=== PATIENT | male | born 1965 | race Caucasian/White ===

== ENCOUNTER 2016-07-23 20:44 | Day surgery (SDC) | payer BC, OTHER ==
[2016-07-23 20:45] VITALS: BP 180/84; PULSE 104; RESP 20; TEMP 98; O2SAT 96
[2016-07-23] MEDS ORDERED: GLUCAGON 1 MG/ML VIAL IV PUSH ONE (21:15)
[2016-07-23 21:46] LABS: AUTOMATED NEUTROPHIL # 4.4 TH/MM3 (1.8-7.7); BASOPHIL # 0.1 TH/MM3 (0-0.2); BASOPHIL % 0.9 % (0.0-2.0); EOSINOPHIL # 0.4 TH/MM3 (0-0.4); EOSINOPHIL % 4.5 % (0.0-4.0); HEMATOCRIT 44.2 % (39.0-51.0); HEMO FLAGS DIFF FINAL; LYMPH % 32.7 % (9.0-44.0); LYMPHOCYTE # 2.7 TH/MM3 (1.0-4.8); MEAN CELL VOLUME 87.3 FL (80.0-100.0); MEAN CORPUSCULAR HEMOGLOBIN 29.8 PG (27.0-34.0); MEAN CORPUSCULAR HGB CONC 34.2 % (32.0-36.0); MONO % 8.5 % (0.0-8.0); NEUT % 53.4 % (16.0-70.0); PLATELET COUNT 270 TH/MM3 (150-450); RED BLOOD COUNT 5.07 MIL/MM3 (4.50-5.90); RED CELL DISTRIBUTION WIDTH 13.1 % (11.6-17.2); WHITE BLOOD COUNT 8.2 TH/MM3 (4.0-11.0)
--- NOTE | 2016-07-23 22:03 | PD ---
HPI Chief Complaint: Foreign Body Time Seen by Provider: 21:00 Travel History International Travel<30 days: No Contact w/Intl Traveler<30days: No Traveled to known affect area: No History of Present Illness HPI Patient is a 51 year old male who comes in after choking on a piece of steak. He says he initially coughed up a large amount of food, but he has not been able to drink water or swallow his spit since then. He says he feels like something is stuck deep in his chest. He says he was in his normal state of health just prior to the event. He denies any other complaints at this time. PFSH Past Surgical History Appendectomy: Yes Social History Alcohol Use: Yes (socially) Tobacco Use: No Substance Use: No Allergies-Medications (Allergen,Severity, Reaction): Coded Allergies: No Known Allergies (Unverified , 07/23/16) Reported Meds & Prescriptions Reported Meds & Active Scripts Active No Active Prescriptions or Reported Medications Review of Systems Except as stated in HPI: all other systems reviewed are Neg General / Constitutional: No: Fever, Chills HENT: No: Headaches, Lightheadedness Cardiovascular: No: Chest Pain or Discomfort Respiratory: No: Shortness of Breath Gastrointestinal: Positive: Nausea, Vomiting Musculoskeletal: No: Edema, Pain Skin: No Rash, No Change in Pigmentation Neurologic: No: Weakness, Dizziness Physical Exam Narrative GENERAL: Awake and alert, not drooling. SKIN: Warm and dry. HEAD: Atraumatic. Normocephalic. EYES: Pupils equal and round. No scleral icterus. ENT: Mucous membranes pink and moist. NECK: Trachea midline. No JVD. CARDIOVASCULAR: Regular rate and rhythm. No murmur appreciated. RESPIRATORY: No accessory muscle use. Clear to auscultation. Breath sounds equal bilaterally. GASTROINTESTINAL: Abdomen soft, non-tender, nondistended. MUSCULOSKELETAL: No obvious deformities. No clubbing. No cyanosis. No edema. NEUROLOGICAL: Awake and alert. No obvious cranial nerve deficits. Motor grossly within normal limits. Normal speech. PSYCHIATRIC: Appropriate mood and affect; insight and judgment normal. Data Data Last Documented VS Vital Signs Date Time Temp Pulse Resp B/P Pulse Ox O2 Delivery O2 Flow Rate FiO2 07/23/16 21:21 18 07/23/16 20:45 98.0 104 180/84 96 Orders Complete Blood Count With Diff (3/17/17 21:09) Basic Metabolic Panel (Bmp) (07/23/16 21:09) Glucagon Inj (Glucagon Inj) (07/23/16 21:15) Admit Order (Ed Use Only) (07/23/16 ) Labs Laboratory Tests Test 07/23/16 21:10 White Blood Count 8.2 TH/MM3 Red Blood Count 5.07 MIL/MM3 Hemoglobin 15.1 GM/DL Hematocrit 44.2 % Mean Corpuscular Volume 87.3 FL Mean Corpuscular Hemoglobin 29.8 PG Mean Corpuscular Hemoglobin 34.2 % Concent Red Cell Distribution Width 13.1 % Platelet Count 270 TH/MM3 Mean Platelet Volume 8.0 FL Neutrophils (%) (Auto) 53.4 % Lymphocytes (%) (Auto) 32.7 % Monocytes (%) (Auto) 8.5 % Eosinophils (%) (Auto) 4.5 % Basophils (%) (Auto) 0.9 % Neutrophils # (Auto) 4.4 TH/MM3 Lymphocytes # (Auto) 2.7 TH/MM3 Monocytes # (Auto) 0.7 TH/MM3 Eosinophils # (Auto) 0.4 TH/MM3 Basophils # (Auto) 0.1 TH/MM3 CBC Comment DIFF FINAL Differential Comment Sodium Level 140 MEQ/L Potassium Level 3.7 MEQ/L Chloride Level 102 MEQ/L Carbon Dioxide Level 31.4 MEQ/L Anion Gap 7 MEQ/L Blood Urea Nitrogen 16 MG/DL Creatinine 1.17 MG/DL Estimat Glomerular Filtration 65 ML/MIN Rate Random Glucose 153 MG/DL Calcium Level 8.8 MG/DL [facility] Medical Decision Making Medical Screen Exam Complete: Yes Emergency Medical Condition: Yes Differential Diagnosis esophageal foreign body vs gastritis vs GERD Narrative Course Patient is a 51 year old male who comes in after choking on steak tonight at dinner. He is not even able to swallow his own saliva without it coming back up. IV established, labs sent. Labs show no acute abnormalities. Patient given Glucagon without relief of his symptoms. Dr. Bowen of GI consulted for EGD to remove food bolus. Diagnosis Primary Impression: Esophageal foreign body Qualified Code: T18.108A - Esophageal foreign body, initial encounter Admitting Information Admitting Physician Requests: Observation Scripts No Active Prescriptions or Reported Meds Condition: April Farley MD Jul 23, 2016 22:03
[2016-07-23 22:09] LABS: BICARBONATE 31.4 MEQ/L (21.0-32.0); POTASSIUM 3.7 MEQ/L (3.5-5.1)
[2016-07-23 22:49] VITALS: BP 140/86; PULSE 93; RESP 18; O2SAT 98
[2016-07-23] MEDS ORDERED: PROPOFOL 200 MG/20 ML AMP IV ONE (23:26)
--- NOTE | 2016-07-23 23:49 | PD.CONS ---
HPI History of Present Illness This is a 51 year old male who presents to the emergency department with complaints of inability to swallow he was eating a piece of steak a little earlier and he got stuck he brought up a good amount of food but he is unable to swallow his saliva this is never happened to him before he denies any prior history of dysphagia and denies any prior history of heartburn or reflux denies any change in appetite he has been dieting to lose weight and has lost about 50 pounds in the past several months through diet and exercise he denies any family history he quit smoking 20 or 30 years ago and is in good health overall [facility] Past Medical History None Past Surgical History Appendectomy Coded Allergies: No Known Allergies (Unverified , 07/23/16) Medications Current Medications Glucagon (Glucagon Inj) 1 mg ONCE ONCE IV PUSH Last administered on 07/23/16t 21:15; Start 07/23/16 at 21:15; Stop 07/23/16 at 21:16; Status DC Family History Noncontributory Social History Patient drinks socially and quit smoking 20 or 30 years ago Review of Systems ROS Review of systems Patient denies any headache dizziness blurry vision, denies any chest pain shortness of breath cough fever chills, Denies any palpitations or fatigue denies any polyuria dysuria hematuria, denies any numbness tingling or weakness, denies any skin rash pruritus or jaundice, denies any easy bruising or bleeding tendency, denies any recent change in mood GI Exam Vitals I&O Vital Signs Date Time Temp Pulse Resp B/P Pulse Ox O2 Delivery O2 Flow Rate FiO2 07/23/16 22:49 93 18 140/86 98 07/23/16 21:21 18 07/23/16 20:45 98.0 104 20 180/84 96 Laboratory Test 07/23/16 21:10 White Blood Count 8.2 TH/MM3 Red Blood Count 5.07 MIL/MM3 Hemoglobin 15.1 GM/DL Hematocrit 44.2 % Mean Corpuscular Volume 87.3 FL Mean Corpuscular Hemoglobin 29.8 PG Mean Corpuscular Hemoglobin 34.2 % Concent Red Cell Distribution Width 13.1 % Platelet Count 270 TH/MM3 Mean Platelet Volume 8.0 FL Neutrophils (%) (Auto) 53.4 % Lymphocytes (%) (Auto) 32.7 % Monocytes (%) (Auto) 8.5 % Eosinophils (%) (Auto) 4.5 % Basophils (%) (Auto) 0.9 % Neutrophils # (Auto) 4.4 TH/MM3 Lymphocytes # (Auto) 2.7 TH/MM3 Monocytes # (Auto) 0.7 TH/MM3 Eosinophils # (Auto) 0.4 TH/MM3 Basophils # (Auto) 0.1 TH/MM3 CBC Comment DIFF FINAL Differential Comment Sodium Level 140 MEQ/L Potassium Level 3.7 MEQ/L Chloride Level 102 MEQ/L Carbon Dioxide Level 31.4 MEQ/L Anion Gap 7 MEQ/L Blood Urea Nitrogen 16 MG/DL Creatinine 1.17 MG/DL Estimat Glomerular Filtration 65 ML/MIN Rate Random Glucose 153 MG/DL Calcium Level 8.8 MG/DL Physical Examination HEENT: Pupils round and reactive to light; normocephalic; atraumatic; no jaundice. Throat is clear. NECK: Neck is supple, no JVD, no lymphadenopathy. CHEST: Chest is clear to auscultation and percussion. CARDIAC: Regular rate and rhythm with no murmur gallop or rubs. ABDOMEN: Obese Soft, nondistended, nontender; no hepatosplenomegaly; bowel sounds are present in all four quadrants. EXTREMITIES: No clubbing, cyanosis, or edema. SKIN: Normal; no rash; no jaundice. POWER TECHNICIAN: No focal deficits; alert and oriented times three. Assessment and Plan Plan Patient with a food bolus impaction We will proceed with an EGD under general anesthesia Further recommendations shall depend on the findings Theron Bowen MD Jul 23, 2016 23:49
--- NOTE | 2016-07-23 23:55 | PD.PROCEDR ---
GI Procedure REFERRING PHYSICIAN ER physician PROCEDURE PERFORMED EGD with food bolus disimpaction INDICATION FOR PROCEDURE Food bolus impaction PROCEDURE: The procedure, risks and benefits were discussed with Mr. Munoz and informed consent was obtained. Patient underwent general anesthesia with intubation to protect his airway. He was placed in the left lateral decubitus position. EGD: The Pentax videoscope was introduced through the oropharynx and advanced to the second portion of the duodenum under direct visualization. Retroflexion was performed in the stomach. FINDINGS: Esophagus this appeared to be unremarkable all the way down to the GE junction where a piece of meat was noted to be impacted this was removed using a tripod after complete removal was felt like the LES was somewhat tight and I couldn't see any inflammation there were no ulcerations no tumor could be found there was a great deal of reflux occurring from the stomach and the evaluation is incomplete The stomach this was filled with food and the evaluation was incomplete but for the most part the mucosa that was seen was unremarkable no bleeding was seen The duodenum was unremarkable but again it was incompletely evaluated due to food ESTIMATED BLOOD LOSS: None SPECIMENS REMOVED: None COMPLICATIONS: None IMPRESSION: Food bolus impaction Incomplete EGD Possibly tight LES PLAN: The findings were discussed with the patient's Patient ought to have a repeat EGD and possibly even a barium swallow at a time when he has been fasting for a complete evaluation In the meanwhile patient to chew food well and probably needs to be on pured diet at this point Patient may be discharged from a GI standpoint post complete recovery from anesthesia he may follow up with us in the office as an outpatient or he may follow up with his primary care physician and his orthotics technician back in [place] when he returns but in the meantime he will take precautions as he eats and chews his food Theron Bowen MD Jul 23, 2016 23:54
[2016-07-24] VITALS: TEMP 97.8
[2016-07-24] MEDS ORDERED: MIDAZOLAM HCL 2 MG/2 ML VIAL ONE (00:02)
[2016-07-24] MEDS ORDERED: DO NOT ADM ANY ANTICOAGULANT DRUGS XX PRN (00:30)
[2016-07-24 00:45] VITALS: BP 119/68; PULSE 78; RESP 16; O2SAT 94
== END 2016-07-24 01:00 | disposition home or self-care (01) ==
LOC: HOR 20:44 → HSDC 22:36
PROVIDERS: ATTEND Internal Medicine Gastroenterology
DX: T18.108A Unspecified foreign body in esophagus causing other injury, initial encounter (principal); R13.0 Aphagia
CPT/HCPCS: 00740; 43247; 80048; 85025; 96374; 99284; J1610; J2250; J3010